=== PATIENT | male | born 1965 | race Caucasian/White ===

== ENCOUNTER 2022-04-18 10:46 | Emergency (ER) | payer OTHER ==
[~2022-04-18] VITALS: Ht 180.3 cm; Wt 128.8 kg
[2022-04-18 11:56] LABS: RED BLOOD COUNT 5.52 M/UL (4.20-5.50); WHITE BLOOD COUNT 8.7 K/UL (4.5-11.0)
[2022-04-18 12:16] LABS: BUN/CREATININE RATIO 25 (0-10)
[2022-04-18] MEDS ORDERED: CEPHALEXIN500 M1 PO (15:48)
[2022-04-18] MEDS ORDERED: BACTRIM DS TAB1 EACH PO (15:48)
== END 2022-04-18 16:03 | disposition home or self-care (01) ==
LOC: ER1 10:46
PROVIDERS: Nurse Practitioner
DX: L02.212 Cutaneous abscess of back [any part, except buttock and flank] (principal); L03.312 Cellulitis of back [any part except buttock and flank]; E11.9 Type 2 diabetes mellitus without complications; Z88.7 Allergy status to serum and vaccine
CPT/HCPCS: 72129; 80053; 83605; 85025; 85652; 86140; 87040; 87070; 87205; 96365; 99283; J0878; Q9967